=== PATIENT | male | born 1950 | race Caucasian/White ===

== ENCOUNTER 2017-02-11 09:07 | Inpatient (IN) | payer OTHER ==
--- NOTE | 2017-02-11 09:38 | HP ---
CIWA Score - CIWA Score Nausea/Vomitin-Mild Nausea/No Vomiting Muscle Tremors: 4-Moderate,w/Arms Extend Anxiety: 4-Mod. Anxious/Guarded Agitation: 1-Slight > Activity Paroxysmal Sweats: 1-Minimal Palms Moist Orientation: 1-Uncertain about Date Tacttile Disturbances: 1-Very Mild Itch/Numbness Auditory Disturbances: 1-Very Mild Visual Disturbances: 1-Very Mild Sensitivity Headache: 2-Mild CIWA-Ar Total Score: 17 Admission ROS S - HPI Chief Complaint: I need detox, I'm too shakey Allergies/Adverse Reactions: Allergies Allergy/AdvReac Type Severity Reaction Status Date / Time No Known Allergies Allergy Verified 02/11/17 09:53 History of Present Illness: 66 yo gentleman here for detox from alcohol and xanax dependence - seizure four years ago (drug related). States last times in detox was here in 2014 and he was sober for a while but relapsed a few months ago. Fell due to drinking two days ago and cut forehead - treated at [facility] ([place]). Exam Limitations: Clinical Condition - Ebola screening Have you traveled outside of the country in the last 21 days: No Have you had contact with anyone from an Ebola affected area: No Do you have a fever: No - Review of Systems Constitutional: Malaise, Changes in sleep, Weakness EENT: reports: Other (right eyebrow with laceration/stitches) Respiratory: reports: Cough Cardiac: reports: No Symptoms Reported GI: reports: Nausea, Poor Appetite : reports: Frequency Musculoskeletal: reports: Back Pain, Muscle Pain Integumentary: reports: Dryness Neuro: reports: Headache Endocrine: reports: No Symptoms Reported Hematology: reports: No Symptoms Reported Psychiatric: reports: Judgement Intact, Mood/Affect Appropiate, Anxious Other Systems: Reviewed and Negative Patient History - Patient Medical History Hx Anemia: No Hx Asthma: No Hx Chronic Obstructive Pulmonary Disease (COPD): Yes Hx Cancer: No Hx Cardiac Disorders: No Hx Congestive Heart Failure: No Hx Hypertension: Yes (on meds) Hx Hypercholesterolemia: No Hx Pacemaker: No HX Cerebrovascular Accident: No Hx Seizures: Yes (last one 2013) Hx Dementia: No Hx Diabetes: Yes Hx Gastrointestinal Disorders: No Hx Liver Disease: Yes Hx Genitourinary Disorders: No Hx Sexually Transmitted Disorders: No Hx Renal Disease (ESRD): No Hx Thyroid Disease: No Hx Human Immunodeficiency Virus (HIV): No Hx Hepatitis C: Yes (treated with harvoni ) Hx Depression: Yes Hx Suicide Attempt: No Hx Bipolar Disorder: No Hx Schizophrenia: No - Patient Surgical History Past Surgical History: No Hx Neurologic Surgery: No Hx Cataract Extraction: No Hx Cardiac Surgery: No Hx Lung Surgery: No Hx Breast Surgery: No Hx Breast Biopsy: No Hx Abdominal Surgery: No Hx Appendectomy: No Hx Cholecystectomy: No Hx Genitourinary Surgery: No Hx Section: No Hx Orthopedic Surgery: No Anesthesia Reaction: No - PPD History Previous Implant?: Yes Documented Results: Negative w/proof Date: 06/29/14 Results: negative 0 mm PPD to be Administered?: Yes - Reproductive History Patient is a Female of Child Bearing Age (11 -55 yrs old): No (male) - Smoking Cessation Smoking history: Current every day smoker Have you smoked in the past 12 months: Yes Aproximately how many cigarettes per day: 20 Hx Chewing Tobacco Use: No Initiated information on smoking cessation: Yes 'Breaking Loose' booklet given: 02/11/17 (give on floor) - Substance & Tx. History Hx Alcohol Use: Yes Hx Substance Use: Yes Substance Use Type: Alcohol, Tranquilizers Hx Substance Use Treatment: Yes (detox, rehab) - Substances Abused Alcohol Route: Oral Frequency: Daily Amount used: 1/2 quart vodka Age of first use: 22 Date of Last Use: 02/10/17 Alprazolam (Xanax) Route: Oral Frequency: Daily Amount used: three 4mg sticks Age of first use: 26 Date of Last Use: 02/09/17 Family Disease History - Family Disease History Family Disease History: Diabetes: Father (,), Heart Disease: Sister ( two - living), CA: Mother (, ), Other: Father, Mother, Sister, Son (two - living - healthy), Daughter (one -living - healthy) Admission Physical Exam BHS - Vital Signs Vital Signs: Vital Signs Period Temp Pulse Resp BP Sys/Boyer Pulse Ox Last 24 Hr 95.9 F 90 20 141/92 - Physical General Appearance: Yes: Nourished, Appropriately Dressed, Moderate Distress, Anxious HEENTM: Yes: Hearing grossly Normal, Normocephalic, Normal Voice, Pharynx Normal , Other (right eyebrow with laceration and four stitches) Respiratory: Yes: Normal Breath Sounds, No Respiratory Distress Neck: Yes: No masses,lesions,Nodules Breast: Yes: Breast Exam Deferred Cardiology: Yes: Regular Rhythm, Regular Rate Abdominal: Yes: Soft Genitourinary: Yes: Frequency Back: Yes: Normal Inspection Musculoskeletal: Yes: full range of Motion, Gait Steady Extremities: Yes: Normal Inspection, Normal Range of Motion, Non-Tender Neurological: Yes: Alert, Motor Strength 5/5, Normal Mood/Affect, Normal Response Integumentary: Yes: Normal Color, Dry, Warm Lymphatic: Yes: Within Normal Limits - Addiitonal Findings: BGM = 135 - Diagnostic (1) Alcohol dependence with uncomplicated withdrawal Current Visit: Yes Status: Chronic (2) Sedative, hypnotic or anxiolytic dependence with withdrawal, uncomplicated Current Visit: Yes Status: Chronic (3) Diabetes mellitus treated with oral medication Current Visit: Yes Status: Chronic (4) History of seizure Current Visit: Yes Status: Chronic (5) COPD (chronic obstructive pulmonary disease) Current Visit: Yes Status: Chronic Qualifiers: COPD type: emphysema Emphysema type: other Qualified Code(s): J43.8 - Other emphysema; J43.8 - Other emphysema; J43.8 - Other emphysema; J43.8 - Other emphysema (6) HTN (hypertension) Current Visit: Yes Status: Chronic Qualifiers: Hypertension type: essential hypertension Qualified Code(s): I10 - Essential (primary) hypertension; I10 - Essential (primary) hypertension; I10 - Essential (primary) hypertension (7) Nicotine dependence Current Visit: Yes Status: Chronic Qualifiers: Nicotine product type: cigarettes Substance use status: uncomplicated Qualified Code(s): F17.210 - Nicotine dependence, cigarettes, uncomplicated ; F17.210 - Nicotine dependence, cigarettes, uncomplicated Cleared for Admission BHS - Detox or Rehab S Level of Care: Medically Managed Detox Regimen/Protocol: Librium BHS Breath Alcohol Content Breath Alcohol Content: 0
[2017-02-11] MEDS ORDERED: MENTHOL/PHENOL 1 EACH UD MM PRN (09:51)
[2017-02-11] MEDS ORDERED: guaiFENesin/D-METHORPHAN HB 10 ML UNIT-DOSE CUPS PO PRN (09:51)
[2017-02-11] MEDS ORDERED: P-EPHED 60MG/TRIPROLIDI 2.5MG TABLET PO PRN (09:51)
[2017-02-11] MEDS ORDERED: MAGNESIUM HYDROX 2400MG/30ML ORAL SUSPENSION 30 ML CUP PO PRN (09:51)
[2017-02-11] MEDS ORDERED: ACETAMINOPHEN 325 MG TABLET (FP) PO PRN (09:51)
[2017-02-11] MEDS ORDERED: MAG HYDROX/AL HYDROX/SIMETH 30 ML UNIT-DOSE CUP PO PRN (09:51)
[2017-02-11] MEDS ORDERED: MAGNESIUM CITRATE 300 ML BOTTLE PO PRN (09:51)
[2017-02-11] MEDS ORDERED: IBUPROFEN 400 MG TABLET (FP) PO PRN (09:51)
[2017-02-11] MEDS ORDERED: LOPERAMIDE HCL 2 MG CAPSULE PO PRN (09:51)
[2017-02-11] MEDS ORDERED: hydrOXYzine PAMOATE 50 MG CAPSULE (FP) PO PRN (09:51)
[2017-02-11] MEDS ORDERED: chlordiazePOXIDE HCL 25 MG CAPSULE PO PRN (09:51)
[2017-02-11 09:52] VITALS: BMI 28.0
[2017-02-11] MEDS ORDERED: chlordiazePOXIDE HCL 25 MG CAPSULE PO ONE (13:00)
[2017-02-11] MEDS: LOSARTAN POTASSIUM 25 MG TABLET PO SCH (13:46)
[2017-02-11] MEDS: NICOTINE 21 MG/24 HOURS TOPICAL PATCH TD SCH (13:48)
[2017-02-11] MEDS: PRENATAL VITAMINS W/ FOLIC ACID TABLET (FP) PO SCH (13:52)
[2017-02-11 15:11] LABS: URINE APPEARANCE SLCLOUDY; URINE BLOOD NEGATIVE (NEGATIVE); URINE COLOR AMBER; URINE GLUCOSE (UA) NEGATIVE (NEGATIVE); URINE KETONE 1+ (NEGATIVE); URINE NITRITE NEGATIVE (NEGATIVE); URINE UROBILINOGEN 4.0 E.U/dl mg/dL (0.2-1.0)
[2017-02-11 15:17] LABS: URINE PROTEIN 2+ (NEGATIVE)
[2017-02-11 15:19] LABS: URINE HYALINE CAST 18 /lpf; URINE MUCUS MANY; URINE RBC 2 /hpf (0-3); URINE WBC 7 /hpf (3-5)
[2017-02-11] MEDS: metFORMIN HCL 500 MG TABLET (FP) PO SCH (17:26)
[2017-02-11] MEDS: chlordiazePOXIDE HCL 25 MG CAPSULE PO SCH ×2 (17:26→22:49)
[2017-02-11 17:46] LABS: URINE LEUK ESTERASE Negative (NEGATIVE)
[2017-02-11] MEDS ORDERED: diphenhydrAMINE HCL 50 MG CAPSULE PO PRN (22:00)
[2017-02-11] MEDS: THIAMINE HCL 100 MG TABLET (FP) PO SCH (22:49)
[2017-02-12] MEDS: chlordiazePOXIDE HCL 25 MG CAPSULE PO SCH ×4 (06:22→22:25)
[2017-02-12] MEDS: metFORMIN HCL 500 MG TABLET (FP) PO SCH ×2 (06:26→17:28)
[2017-02-12 09:54] LABS: MCH 28.5 pg (25.7-33.7); MCHC 33.8 g/dl (32.0-35.9); MEAN CELL VOLUME 84.4 fl (80-96); MEAN PLT VOLUME 9.1 fl (7.5-11.1); PLATELET COUNT 307 K/MM3 (134-434); RDW 14.7 % (11.9-15.9); WHITE BLOOD COUNT 11.6 K/mm3 (4.0-10.0)
[2017-02-12 10:27] LABS: ALBUMIN 4.2 g/dl (3.4-5.0); ALK PHOS 85 U/L (45-117); ANION GAP 10 (8-16); BILIRUBIN,TOTAL 1.2 mg/dL (0.2-1.0); CALCIUM 9.1 mg/dL (8.5-10.1); CO2 26 mmol/L (21-32); CREATININE 0.8 mg/dL (0.7-1.3); GLUCOSE,RANDOM 132 mg/dL (74-106); SGOT/AST 13 U/L (15-37); SGPT/ALT 17 U/L (12-78); TOT PROT 7.9 g/dl (6.4-8.2)
[2017-02-12] MEDS: NICOTINE 21 MG/24 HOURS TOPICAL PATCH TD SCH (11:01)
[2017-02-12] MEDS: LOSARTAN POTASSIUM 25 MG TABLET PO SCH (11:01)
[2017-02-12] MEDS: PRENATAL VITAMINS W/ FOLIC ACID TABLET (FP) PO SCH (11:01)
--- NOTE | 2017-02-12 11:04 | EKG ---
Test Reason : Blood Pressure : / mmHG Vent. Rate : 088 BPM Atrial Rate : 088 BPM P-R Int : 156 ms QRS Dur : 094 ms QT Int : 386 ms P-R-T Axes : 069 -49 065 degrees QTc Int : 467 ms NORMAL SINUS RHYTHM LEFT ANTERIOR FASCICULAR BLOCK POSSIBLE INFERIOR INFARCT , AGE UNDETERMINED ABNORMAL ECG WHEN COMPARED WITH ECG OF 08-OCT-2012 08:52, QRS AXIS SHIFTED LEFT CLINICAL CORRELATION IS RECOMMENDED Confirmed by BRISEYDA COPELAND MD ([id number]) on 02/12/2017 11:03:31 AM Referred By: Confirmed By:BRISEYDA COPELAND MD
--- NOTE | 2017-02-12 11:12 | CONSULT ---
[facility] Psychiatric Consult - Data Date of interview: 02/12/17 Admission source: [facility]([place]) Identifying data: Mr Martinez is a 66 years old male, father of 3 children, unemployed on SSD, domiciled living with his Substance Abuse History: Reports history of alcohol and xanax use. Refer to addiction counselor's note for more information Medical History: Significant for history of COPD, HTN, DM,history of treatment for hepatitis C Smokes cigarettes 1ppd. Psychiatric History: Reports being diagnosed with OCD at age 7. Denies history of previous psychiatric hospitalization or suicidal attempt. Reports receiving psychiatric outpatient services at [facility](formerly [facility]) and he is prescribed Luvox 300 mg po daily, Seroquel 400 mg po HS and Trazadone 100 mg HS. According to pharmacy claims, he filled scripts for Trazadone 100 mg po HS on 12/07/16 and Luvox 300 mg po daily & Seroquel 400 mg po HS on 01/27/17. At present, reports feeling anxious and experiencing difficulty to sleep Physical/Sexual Abuse/Trauma History: Denies history of verbal, physical or sexual abuse as DV relationship. No service Additional Comment: Reports history of couple previous misdemeanor arrests for possesion of narcotic. No probation currently Mental Status Exam - Mental Status Exam Alert and Oriented to: Time, Place, Person Cognitive Function: Fair Patient Appearance: Well Groomed Mood: Anxious Affect: Appropriate Patient Behavior: Cooperative Speech Pattern: Clear Voice Loudness: Normal Thought Process: Intact, Goal Oriented Thought Disorder: Not Present Hallucinations: Denies Suicidal Ideation: Denies Homicidal Ideation: Denies Insight/Judgement: Poor Sleep: Poorly Appetite: Fair Muscle strength/Tone: Normal Gait/Station: Normal Psychiatric Findings - Problem List ([place] 1, 2,3) (1) OCD (obsessive compulsive disorder) Current Visit: No Status: Chronic (2) Substance-induced anxiety disorder Current Visit: Yes Status: Acute (3) Substance-induced sleep disorder Current Visit: Yes Status: Acute (4) Alcohol dependence with uncomplicated withdrawal Current Visit: Yes Status: Chronic (5) Sedative, hypnotic or anxiolytic dependence with withdrawal, uncomplicated Current Visit: Yes Status: Chronic (6) Nicotine dependence Current Visit: Yes Status: Chronic Qualifiers: Nicotine product type: cigarettes Substance use status: uncomplicated Qualified Code(s): F17.210 - Nicotine dependence, cigarettes, uncomplicated ; F17.210 - Nicotine dependence, cigarettes, uncomplicated (7) COPD (chronic obstructive pulmonary disease) Current Visit: Yes Status: Chronic Qualifiers: COPD type: emphysema Emphysema type: other Qualified Code(s): J43.8 - Other emphysema; J43.8 - Other emphysema; J43.8 - Other emphysema; J43.8 - Other emphysema (8) Diabetes mellitus treated with oral medication Current Visit: Yes Status: Chronic (9) HTN (hypertension) Current Visit: Yes Status: Chronic Qualifiers: Hypertension type: essential hypertension Qualified Code(s): I10 - Essential (primary) hypertension; I10 - Essential (primary) hypertension; I10 - Essential (primary) hypertension (10) History of seizure Current Visit: Yes Status: Chronic (11) Opioid dependence on agonist therapy Current Visit: Yes Status: Acute - Initial Treatment Plan Initial Treatment Plan: 1) Continue Luvox 300 mg po daily, Seroquel 400 mg po HS. 2) Continue inpatient detoxification
--- NOTE | 2017-02-12 14:12 | PN ---
[facility] CIWA - CIWA Score Nausea/Vomitin-No Nausea/No Vomiting Muscle Tremors: 4-Moderate,w/Arms Extend Anxiety: 4-Mod. Anxious/Guarded Agitation: 3 Paroxysmal Sweats: 3 Orientation: 0-Oriented Tacttile Disturbances: 1-Very Mild Itch/Numbness Auditory Disturbances: 0-None Visual Disturbances: 0-None Headache: 0-None Present CIWA-Ar Total Score: 15 BHS Progress Note (SOAP) Subjective: Anxiety,tremors,sweating,interrupted sleep,restless Objective: 02/12/17 14:10 Vital Signs - 8 hr 02/12/17 10:00 Temperature 98.3 F Pulse Rate 82 Respiratory 18 Rate Blood Pressure 123/82 Laboratory Tests 02/11/17 02/11/17 02/12/17 09:59 13:45 05:55 WBC 11.6 H D RBC 5.24 D Hgb 15.0 D Hct 44.3 D MCV 84.4 MCH 28.5 MCHC 33.8 RDW 14.7 Plt Count 307 MPV 9.1 D Sodium Potassium Chloride Carbon Dioxide Anion Gap BUN Creatinine Creat Clearance w eGFR POC Glucometer 136 Random Glucose Calcium Total Bilirubin AST ALT Alkaline Phosphatase Total Protein Albumin Urine Color Tara Urine Appearance Slcloudy Urine pH 5.0 D Ur Specific [place] >= 1.030 H Urine Protein 2+ H Urine Glucose (UA) Negative Urine Ketones 1+ H Urine Blood Negative Urine Nitrite Negative Urine Bilirubin 2.0 Urine Urobilinogen 4.0 e.u/dl Ur Leukocyte Esterase Negative Urine RBC 2 Urine WBC 7 Hyaline Casts 18 Urine Mucus Many RPR Titer 02/12/17 02/12/17 02/12/17 05:55 05:55 06:25 WBC RBC Hgb Hct MCV MCH MCHC RDW Plt Count MPV Sodium 138 Potassium 3.6 Chloride 102 Carbon Dioxide 26 Anion Gap 10 BUN 22 H D Creatinine 0.8 Creat Clearance w eGFR > 60 POC Glucometer 129 Random Glucose 132 H Calcium 9.1 Total Bilirubin 1.2 H D AST 13 L D ALT 17 D Alkaline Phosphatase 85 Total Protein 7.9 Albumin 4.2 Urine Color Urine Appearance Urine pH Ur Specific [place] Urine Protein Urine Glucose (UA) Urine Ketones Urine Blood Urine Nitrite Urine Bilirubin Urine Urobilinogen Ur Leukocyte Esterase Urine RBC Urine WBC Hyaline Casts Urine Mucus RPR Titer Nonreactive labs noted,increase po fluid then repeat Assessment: 02/12/17 14:11 Withdrawal sx. Plan: Continue detox
[2017-02-12] MEDS ORDERED: ALBUTEROL SO4 18 GM HFA INHALER IH ONE (17:01)
[2017-02-12] MEDS: ALBUTEROL SO4 18 GM HFA INHALER IH PRN (17:02)
[2017-02-12] MEDS: QUEtiapine FUMARATE 200 MG TABLET PO SCH (22:24)
[2017-02-12] MEDS: THIAMINE HCL 100 MG TABLET (FP) PO SCH (22:24)
[2017-02-13] MEDS: chlordiazePOXIDE HCL 25 MG CAPSULE PO SCH ×2 (05:58→10:21)
[2017-02-13] MEDS: metFORMIN HCL 500 MG TABLET (FP) PO SCH ×2 (07:14→17:52)
[2017-02-13] MEDS: LOSARTAN POTASSIUM 25 MG TABLET PO SCH (10:21)
[2017-02-13] MEDS: PRENATAL VITAMINS W/ FOLIC ACID TABLET (FP) PO SCH (10:21)
[2017-02-13] MEDS: NICOTINE 21 MG/24 HOURS TOPICAL PATCH TD SCH (10:22)
--- NOTE | 2017-02-13 12:39 | PN ---
S CIWA - CIWA Score Nausea/Vomitin Muscle Tremors: 3 Anxiety: 3 Agitation: 2 Paroxysmal Sweats: 1-Minimal Palms Moist Orientation: 0-Oriented Tacttile Disturbances: 1-Very Mild Itch/Numbness Auditory Disturbances: 1-Very Mild Visual Disturbances: 0-None Headache: 2-Mild CIWA-Ar Total Score: 16 BHS Progress Note (SOAP) Subjective: ALERT,IRRITABLE,ANXIOUS,INTERRUPTED SLEEP,TREMOR Objective: 02/13/17 12:39 Vital Signs Temperature 97.5 F L 02/13/17 10:11 Pulse Rate 78 02/13/17 10:11 Respiratory Rate 18 02/13/17 10:11 Blood Pressure 97/65 02/13/17 10:11 O2 Sat by Pulse Oximetry (%) NO CHEST PAIN,NO SOB,NO DIZZINESS Laboratory Last Values WBC 11.6 K/mm3 (4.0-10.0) H D 02/12/17 05:55 RBC 5.24 M/mm3 (4.00-5.60) D 02/12/17 05:55 Hgb 15.0 GM/dL (11.7-16.9) D 02/12/17 05:55 Hct 44.3 % (35.4-49) D 02/12/17 05:55 MCV 84.4 fl (80-96) 02/12/17 05:55 MCH 28.5 pg (25.7-33.7) 02/12/17 05:55 MCHC 33.8 g/dl (32.0-35.9) 02/12/17 05:55 RDW 14.7 % (11.9-15.9) 02/12/17 05:55 Plt Count 307 K/MM3 (134-434) 02/12/17 05:55 MPV 9.1 fl (7.5-11.1) D 02/12/17 05:55 Sodium 138 mmol/L (136-145) 02/12/17 05:55 Potassium 3.6 mmol/L (3.5-5.1) 02/12/17 05:55 Chloride 102 mmol/L (98-107) 02/12/17 05:55 Carbon Dioxide 26 mmol/L (21-32) 02/12/17 05:55 Anion Gap 10 (8-16) 02/12/17 05:55 BUN 22 mg/dL (7-18) H D 02/12/17 05:55 Creatinine 0.8 mg/dL (0.7-1.3) 02/12/17 05:55 Creat Clearance w eGFR > 60 (>60) 02/12/17 05:55 POC Glucometer 137 UNITS (()) 02/13/17 05:58 Random Glucose 132 mg/dL (74-106) H 02/12/17 05:55 Calcium 9.1 mg/dL (8.5-10.1) 02/12/17 05:55 Total Bilirubin 1.2 mg/dL (0.2-1.0) H D 02/12/17 05:55 AST 13 U/L (15-37) L D 02/12/17 05:55 ALT 17 U/L (12-78) D 02/12/17 05:55 Alkaline Phosphatase 85 U/L (45-117) 02/12/17 05:55 Total Protein 7.9 g/dl (6.4-8.2) 02/12/17 05:55 Albumin 4.2 g/dl (3.4-5.0) 02/12/17 05:55 Urine Color Tara 02/11/17 13:45 Urine Appearance Slcloudy 02/11/17 13:45 Urine pH 5.0 (5.0-8.0) D 02/11/17 13:45 Ur Specific [place] >= 1.030 (1.005-1.025) H 02/11/17 13:45 Urine Protein 2+ (NEGATIVE) H 02/11/17 13:45 Urine Glucose (UA) Negative (NEGATIVE) 02/11/17 13:45 Urine Ketones 1+ (NEGATIVE) H 02/11/17 13:45 Urine Blood Negative (NEGATIVE) 02/11/17 13:45 Urine Nitrite Negative (NEGATIVE) 02/11/17 13:45 Urine Bilirubin 2.0 (NEGATIVE) 02/11/17 13:45 Urine Urobilinogen 4.0 e.u/dl mg/dL (0.2-1.0) 02/11/17 13:45 Ur Leukocyte Esterase Negative (NEGATIVE) 02/11/17 13:45 Urine RBC 2 /hpf (0-3) 02/11/17 13:45 Urine WBC 7 /hpf (3-5) 02/11/17 13:45 Hyaline Casts 18 /lpf 02/11/17 13:45 Urine Mucus Many 02/11/17 13:45 RPR Titer Nonreactive (NONREACTIVE) 02/12/17 05:55 Assessment: 02/13/17 12:41 WITHDRAWAL SYMPTOM Plan: ENCOURAGE ORAL FLUID,REPEAT CBC,CMP,UA
[2017-02-13] MEDS: ALBUTEROL SO4 18 GM HFA INHALER IH PRN ×2 (15:08→22:06)
[2017-02-13] MEDS: chlordiazePOXIDE 5 MG CAPSULE PO SCH ×2 (17:52→22:06)
[2017-02-13] MEDS: THIAMINE HCL 100 MG TABLET (FP) PO SCH (22:06)
[2017-02-13] MEDS: QUEtiapine FUMARATE 200 MG TABLET PO SCH (22:06)
[2017-02-13 23:03] LABS: URINE APPEARANCE CLEAR; URINE BILIRUBIN NEGATIVE (NEGATIVE); URINE BLOOD NEGATIVE (NEGATIVE); URINE COLOR YELLOW; URINE GLUCOSE (UA) NEGATIVE (NEGATIVE); URINE KETONE NEGATIVE (NEGATIVE); URINE NITRITE NEGATIVE (NEGATIVE); URINE PROTEIN NEGATIVE (NEGATIVE); URINE UROBILINOGEN 4.0 E.U/dl mg/dL (0.2-1.0)
[2017-02-14] MEDS: chlordiazePOXIDE 5 MG CAPSULE PO SCH ×2 (05:29→11:00)
[2017-02-14] MEDS: metFORMIN HCL 500 MG TABLET (FP) PO SCH ×2 (08:31→17:51)
[2017-02-14 10:00] LABS: MCH 28.8 pg (25.7-33.7); MCHC 33.7 g/dl (32.0-35.9); MEAN CELL VOLUME 85.3 fl (80-96); MEAN PLT VOLUME 8.8 fl (7.5-11.1); PLATELET COUNT 222 K/MM3 (134-434); RDW 14.9 % (11.9-15.9); WHITE BLOOD COUNT 8.4 K/mm3 (4.0-10.0)
[2017-02-14 10:44] LABS: ALBUMIN 3.3 g/dl (3.4-5.0); ALK PHOS 64 U/L (45-117); ANION GAP 9 (8-16); BILIRUBIN,TOTAL 0.5 mg/dL (0.2-1.0); CALCIUM 8.5 mg/dL (8.5-10.1); CO2 30 mmol/L (21-32); CREATININE 0.7 mg/dL (0.7-1.3); GLUCOSE,RANDOM 106 mg/dL (74-106); SGOT/AST 7 U/L (15-37); SGPT/ALT 14 U/L (12-78); TOT PROT 6.4 g/dl (6.4-8.2)
[2017-02-14] MEDS: PRENATAL VITAMINS W/ FOLIC ACID TABLET (FP) PO SCH (11:00)
[2017-02-14] MEDS: LOSARTAN POTASSIUM 25 MG TABLET PO SCH (11:01)
[2017-02-14] MEDS: NICOTINE 21 MG/24 HOURS TOPICAL PATCH TD SCH (11:01)
[2017-02-14] MEDS: ALBUTEROL SO4 18 GM HFA INHALER IH PRN (11:02)
[2017-02-14 11:24] LABS: URINE LEUK ESTERASE Negative (NEGATIVE)
--- NOTE | 2017-02-14 11:24 | PN ---
BHS Progress Note (SOAP) Subjective: alert,irritable,anxious,interrupted sleep,abrasion of left elbow Objective: 02/14/17 11:20 Vital Signs Temperature 100 F H 02/14/17 10:21 Pulse Rate 83 02/14/17 10:21 Respiratory Rate 19 02/14/17 10:21 Blood Pressure 148/91 02/14/17 10:21 O2 Sat by Pulse Oximetry (%) Laboratory Last Values WBC 8.4 K/mm3 (4.0-10.0) 02/14/17 07:00 RBC 4.67 M/mm3 (4.00-5.60) 02/14/17 07:00 Hgb 13.4 GM/dL (11.7-16.9) D 02/14/17 07:00 Hct 39.9 % (35.4-49) 02/14/17 07:00 MCV 85.3 fl (80-96) 02/14/17 07:00 MCH 28.8 pg (25.7-33.7) 02/14/17 07:00 MCHC 33.7 g/dl (32.0-35.9) 02/14/17 07:00 RDW 14.9 % (11.9-15.9) 02/14/17 07:00 Plt Count 222 K/MM3 (134-434) D 02/14/17 07:00 MPV 8.8 fl (7.5-11.1) 02/14/17 07:00 Sodium 138 mmol/L (136-145) 02/12/17 05:55 Potassium 3.6 mmol/L (3.5-5.1) 02/12/17 05:55 Chloride 102 mmol/L (98-107) 02/12/17 05:55 Carbon Dioxide 26 mmol/L (21-32) 02/12/17 05:55 Anion Gap 10 (8-16) 02/12/17 05:55 BUN 22 mg/dL (7-18) H D 02/12/17 05:55 Creatinine 0.8 mg/dL (0.7-1.3) 02/12/17 05:55 Creat Clearance w eGFR > 60 (>60) 02/12/17 05:55 POC Glucometer 123 UNITS (()) 02/14/17 07:05 Random Glucose 132 mg/dL (74-106) H 02/12/17 05:55 Calcium 9.1 mg/dL (8.5-10.1) 02/12/17 05:55 Total Bilirubin 1.2 mg/dL (0.2-1.0) H D 02/12/17 05:55 AST 13 U/L (15-37) L D 02/12/17 05:55 ALT 17 U/L (12-78) D 02/12/17 05:55 Alkaline Phosphatase 85 U/L (45-117) 02/12/17 05:55 Total Protein 7.9 g/dl (6.4-8.2) 02/12/17 05:55 Albumin 4.2 g/dl (3.4-5.0) 02/12/17 05:55 Urine Color Yellow 02/13/17 Unknown Urine Appearance Clear 02/13/17 Unknown Urine pH 7.0 (5.0-8.0) D 02/13/17 Unknown Ur Specific [place] >= 1.030 (1.005-1.025) H 02/11/17 13:45 Urine Protein Negative (NEGATIVE) 02/13/17 Unknown Urine Glucose (UA) Negative (NEGATIVE) 02/13/17 Unknown Urine Ketones Negative (NEGATIVE) 02/13/17 Unknown Urine Blood Negative (NEGATIVE) 02/13/17 Unknown Urine Nitrite Negative (NEGATIVE) 02/13/17 Unknown Urine Bilirubin Negative (NEGATIVE) 02/13/17 Unknown Urine Urobilinogen 4.0 e.u/dl mg/dL (0.2-1.0) 02/13/17 Unknown Ur Leukocyte Esterase Negative (NEGATIVE) 02/11/17 13:45 Urine RBC 2 /hpf (0-3) 02/11/17 13:45 Urine WBC 7 /hpf (3-5) 02/11/17 13:45 Hyaline Casts 18 /lpf 02/11/17 13:45 Urine Mucus Many 02/11/17 13:45 RPR Titer Nonreactive (NONREACTIVE) 02/12/17 05:55 Assessment: 02/14/17 11:22 withdrawal symptom repeat cbc wbc 8,400 02/14/17 11:23 02/14/17 11:24 cmp pending Plan: withdrawal symptom,continue detox,bacitracin ointment bid abrasion left elbow, discharge in am
[2017-02-14] MEDS: chlordiazePOXIDE HCL 10 MG CAPSULE PO SCH ×2 (17:36→23:27)
[2017-02-14] MEDS: QUEtiapine FUMARATE 200 MG TABLET PO SCH (22:47)
[2017-02-14] MEDS: THIAMINE HCL 100 MG TABLET (FP) PO SCH (22:48)
[2017-02-14] MEDS: BACITRACIN 0.9 GM PACKET TP SCH (22:48)
[2017-02-15] MEDS: chlordiazePOXIDE HCL 10 MG CAPSULE PO SCH ×2 (05:33→10:26)
[2017-02-15] MEDS: metFORMIN HCL 500 MG TABLET (FP) PO SCH ×2 (07:42→17:00)
--- NOTE | 2017-02-15 09:43 | PN ---
S Progress Note (SOAP) Subjective: alert,no complaint Objective: 02/15/17 09:41 Vital Signs Temperature 97.3 F L 02/15/17 06:36 Pulse Rate 83 02/15/17 06:36 Respiratory Rate 18 02/15/17 06:36 Blood Pressure 117/66 02/15/17 06:36 O2 Sat by Pulse Oximetry (%) detox completed,no withdrawal symptom Assessment: 02/15/17 09:42 sutures removed from right eyebrow and right mandibular area wound healed well Plan: discharge to[place],follow up with after care program as arrangement
--- NOTE | 2017-02-15 09:48 | DS ---
[facility] Detox Discharge Summary Admission Date: 02/11/17 Discharge Date: 02/15/17 - History Present History: Alcohol Dependence, Sedative Dependence Additional Comments: follow up with after care program as arrangement Pertinent Past History: type 23 dm copd hypertension nicotine dependenc e history of seizures laceration of right eyebrow,chin,abrasion left elbow - Physical Exam Results Vital Signs: Vital Signs Temperature 97.3 F L 02/15/17 06:36 Pulse Rate 83 02/15/17 06:36 Respiratory Rate 18 02/15/17 06:36 Blood Pressure 117/66 02/15/17 06:36 O2 Sat by Pulse Oximetry (%) Pertinent Admission Physical Exam Findings: withdrawal symptom - Treatment Hospital Course: Detox Protocol Followed, Detoxed Safely, Responded well, Discharged Condition Good, Rehab Referral Accepted Patient has Accepted a Rehab Referral to: [facility] - Medication Discharge Medications: Ambulatory Orders Albuterol Sulfate Inhaler - [Ventolin Hfa Inhaler -] 2 inh PO Q4H PRN 02/11/17 Losartan Potassium [Cozaar -] 25 mg PO DAILY 02/11/17 Metformin HCl [Glucophage -] 500 mg PO BID 02/11/17 Quetiapine Fumarate [Seroquel -] 300 mg PO HS 02/11/17 Fluvoxamine Maleate [Luvox -] 300 mg PO DAILY #90 tablet 02/12/17 Quetiapine Fumarate [Seroquel -] 400 mg PO HS #30 tablet 02/12/17 - Diagnosis (1) Alcohol dependence with uncomplicated withdrawal Current Visit: Yes Status: Chronic (2) COPD (chronic obstructive pulmonary disease) Current Visit: Yes Status: Chronic Qualifiers: COPD type: emphysema Emphysema type: other Qualified Code(s): J43.8 - Other emphysema; J43.8 - Other emphysema; J43.8 - Other emphysema; J43.8 - Other emphysema (3) Diabetes mellitus treated with oral medication Current Visit: Yes Status: Chronic (4) HTN (hypertension) Current Visit: Yes Status: Chronic Qualifiers: Hypertension type: essential hypertension Qualified Code(s): I10 - Essential (primary) hypertension; I10 - Essential (primary) hypertension; I10 - Essential (primary) hypertension (5) History of seizure Current Visit: Yes Status: Chronic (6) Nicotine dependence Current Visit: Yes Status: Chronic Qualifiers: Nicotine product type: cigarettes Substance use status: uncomplicated Qualified Code(s): F17.210 - Nicotine dependence, cigarettes, uncomplicated ; F17.210 - Nicotine dependence, cigarettes, uncomplicated (7) Sedative, hypnotic or anxiolytic dependence with withdrawal, uncomplicated Current Visit: Yes Status: Chronic (8) Drug-induced mood disorder Current Visit: No Status: Chronic (9) Laceration of right eyebrow Current Visit: Yes Status: Acute (10) Laceration of chin Current Visit: Yes Status: Acute - AMA Did Patient Leave Against Medical Advice: No
[2017-02-15] MEDS: NICOTINE 21 MG/24 HOURS TOPICAL PATCH TD SCH (10:00)
[2017-02-15] MEDS: PRENATAL VITAMINS W/ FOLIC ACID TABLET (FP) PO SCH (10:24)
[2017-02-15] MEDS: LOSARTAN POTASSIUM 25 MG TABLET PO SCH (10:24)
[2017-02-15] MEDS: BACITRACIN 0.9 GM PACKET TP SCH ×2 (10:25→21:54)
--- NOTE | 2017-02-15 10:25 | PN ---
S Progress Note Note: addendum patient will be transferred to rehab for continuation of care
[2017-02-15] MEDS: THIAMINE HCL 100 MG TABLET (FP) PO SCH (21:53)
[2017-02-15] MEDS: QUEtiapine FUMARATE 200 MG TABLET PO SCH (21:53)
[2017-02-16] MEDS: metFORMIN HCL 500 MG TABLET (FP) PO SCH ×2 (06:32→17:23)
[2017-02-16] MEDS: NICOTINE 21 MG/24 HOURS TOPICAL PATCH TD SCH (10:26)
[2017-02-16] MEDS: BACITRACIN 0.9 GM PACKET TP SCH ×2 (10:26→21:39)
[2017-02-16] MEDS: LOSARTAN POTASSIUM 25 MG TABLET PO SCH (10:26)
[2017-02-16] MEDS: PRENATAL VITAMINS W/ FOLIC ACID TABLET (FP) PO SCH (10:26)
--- NOTE | 2017-02-16 11:10 | PN ---
S Progress Note Note: labs and home meds reviewed will restart neurontin 300mg tid
[2017-02-16] MEDS ORDERED: FLU VACCINE QUAD 60 MCG/0.5 ML (MDV 17-18) IM ONE (12:00)
--- NOTE | 2017-02-16 12:09 | HP ---
Psychiatrist Admission - Data Date of interview: 02/16/17 Admission source: 6N Identifying data: This is the second inpatient rehabilitation admission for this 66 year old male father of 3, unemployed and on disability benefits, residing with his in the [place] apartment. Medical History: HTN, diabetes mellitus, diabetic neuropathy, COPD. Reports having had a single grand mal seizure years ago. Hepatitis C. Vertebral fracture , work related, in his 20's. Psychiatric History: Reports first psychiatric treatment was about 30 years ago "I have OCD, mild depression and anxiety", and was on different medications". Reports no history of psychiatric hospitalization however had been admitted to a NADIA unit at [facility] in [place] around 30 years ago for 28 days of rehab treatment. Reports receiving psychiatric outpatient services at [facility](formerly [facility]) and he is prescribed Luvox 300 mg po daily, Seroquel 400 mg po HS and Trazodone 100 mg HS. Physical/Sexual Abuse/Trauma History: Reports no history of physical or sexual abuse, and no history of service. 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 Vital Signs: Vital Signs - 24 hr 02/15/17 02/16/17 02/16/17 13:06 00:30 03:30 Temperature 97.6 F Pulse Rate 85 Respiratory 18 18 18 Rate Blood Pressure 143/99 02/16/17 07:22 Temperature 97.8 F Pulse Rate 77 Respiratory 18 Rate Blood Pressure 142/99 Allergies/Adverse Reactions: Allergies Allergy/AdvReac Type Severity Reaction Status Date / Time No Known Allergies Allergy Verified 02/15/17 13:08 Date of last physical exam: 02/11/17 Concur with the findings of this exam: Yes - Substance Abuse/Tx History Hx Alcohol Use: Yes (daily 1 pint of vodka) Hx Substance Use: Yes Substance Use Type: Heroin (Iv use 1 -2 bags daily), Tranquilizers (Xanax 2 mg daily) Hx Substance Use Treatment: Yes (3w in 2012, [facility]) Mental Status Exam - Mental Status Exam Alert and Oriented to: Time, Place, Person Cognitive Function: Good Patient Appearance: Well Groomed Mood: Sad, Anxious Affect: Appropriate, Mood Congruent Patient Behavior: Appropriate, Cooperative Speech Pattern: Clear, Appropriate Voice Loudness: Normal Thought Process: Goal Oriented Thought Disorder: Not Present Hallucinations: Denies Suicidal Ideation: Denies Homicidal Ideation: Denies Insight/Judgement: Fair Sleep: Fair Appetite: Fair Muscle strength/Tone: Normal Gait/Station: Normal Psychiatric Findings - Problem List ([place] 1, 2,3) (1) COPD (chronic obstructive pulmonary disease) Current Visit: Yes Status: Chronic Qualifiers: COPD type: emphysema Emphysema type: other Qualified Code(s): J43.8 - Other emphysema; J43.8 - Other emphysema; J43.8 - Other emphysema; J43.8 - Other emphysema (2) Diabetes mellitus treated with oral medication Current Visit: Yes Status: Chronic (3) HTN (hypertension) Current Visit: Yes Status: Chronic Qualifiers: Hypertension type: essential hypertension Qualified Code(s): I10 - Essential (primary) hypertension; I10 - Essential (primary) hypertension; I10 - Essential (primary) hypertension (4) History of seizure Current Visit: Yes Status: Chronic (5) Nicotine dependence Current Visit: Yes Status: Chronic Qualifiers: Nicotine product type: cigarettes Substance use status: uncomplicated Qualified Code(s): F17.210 - Nicotine dependence, cigarettes, uncomplicated ; F17.210 - Nicotine dependence, cigarettes, uncomplicated (6) OCD (obsessive compulsive disorder) Current Visit: No Status: Chronic (7) Alcohol dependence Current Visit: Yes Status: Acute (8) SHASHANK (generalized anxiety disorder) Current Visit: Yes Status: Acute (9) Mood disorder Current Visit: Yes Status: Acute - Initial Treatment Plan Initial Treatment Plan: will continue his current medications, monitor progress as needed.
[2017-02-16] MEDS: GABAPENTIN 300 MG CAPSULE (FP) PO SCH ×2 (13:53→21:39)
[2017-02-16] MEDS: THIAMINE HCL 100 MG TABLET (FP) PO SCH (21:39)
[2017-02-16] MEDS: QUEtiapine FUMARATE 200 MG TABLET PO SCH (21:40)
[2017-02-17] MEDS: metFORMIN HCL 500 MG TABLET (FP) PO SCH ×2 (06:33→17:13)
[2017-02-17] MEDS: GABAPENTIN 300 MG CAPSULE (FP) PO SCH ×3 (06:34→21:00)
[2017-02-17] MEDS: NICOTINE 21 MG/24 HOURS TOPICAL PATCH TD SCH (10:16)
[2017-02-17] MEDS: BACITRACIN 0.9 GM PACKET TP SCH ×2 (10:16→21:00)
[2017-02-17] MEDS: PRENATAL VITAMINS W/ FOLIC ACID TABLET (FP) PO SCH (10:16)
[2017-02-17] MEDS: LOSARTAN POTASSIUM 25 MG TABLET PO SCH (10:16)
[2017-02-17] MEDS: QUEtiapine FUMARATE 200 MG TABLET PO SCH (21:00)
[2017-02-17] MEDS: THIAMINE HCL 100 MG TABLET (FP) PO SCH (21:00)
[2017-02-18] MEDS: metFORMIN HCL 500 MG TABLET (FP) PO SCH ×2 (06:32→17:05)
[2017-02-18] MEDS: GABAPENTIN 300 MG CAPSULE (FP) PO SCH ×3 (06:32→22:15)
[2017-02-18] MEDS: PRENATAL VITAMINS W/ FOLIC ACID TABLET (FP) PO SCH (10:43)
[2017-02-18] MEDS: BACITRACIN 0.9 GM PACKET TP SCH ×2 (10:43→22:15)
[2017-02-18] MEDS: LOSARTAN POTASSIUM 25 MG TABLET PO SCH (10:43)
[2017-02-18] MEDS: NICOTINE 21 MG/24 HOURS TOPICAL PATCH TD SCH (10:43)
[2017-02-18] MEDS: QUEtiapine FUMARATE 200 MG TABLET PO SCH (22:15)
[2017-02-18] MEDS: THIAMINE HCL 100 MG TABLET (FP) PO SCH (22:15)
[2017-02-19] MEDS: GABAPENTIN 300 MG CAPSULE (FP) PO SCH ×3 (06:32→21:51)
[2017-02-19] MEDS: metFORMIN HCL 500 MG TABLET (FP) PO SCH ×2 (06:32→16:56)
[2017-02-19] MEDS: BACITRACIN 0.9 GM PACKET TP SCH ×2 (10:30→21:51)
[2017-02-19] MEDS: LOSARTAN POTASSIUM 25 MG TABLET PO SCH (10:32)
[2017-02-19] MEDS: NICOTINE 21 MG/24 HOURS TOPICAL PATCH TD SCH (10:32)
[2017-02-19] MEDS: PRENATAL VITAMINS W/ FOLIC ACID TABLET (FP) PO SCH (10:32)
[2017-02-19] MEDS: ALBUTEROL SO4 18 GM HFA INHALER IH PRN (20:23)
[2017-02-19] MEDS: THIAMINE HCL 100 MG TABLET (FP) PO SCH (21:51)
[2017-02-19] MEDS: QUEtiapine FUMARATE 200 MG TABLET PO SCH (21:51)
[2017-02-20] MEDS: GABAPENTIN 300 MG CAPSULE (FP) PO SCH ×3 (06:11→22:03)
[2017-02-20] MEDS: metFORMIN HCL 500 MG TABLET (FP) PO SCH ×2 (06:11→16:51)
[2017-02-20] MEDS: NICOTINE 21 MG/24 HOURS TOPICAL PATCH TD SCH (10:38)
[2017-02-20] MEDS: PRENATAL VITAMINS W/ FOLIC ACID TABLET (FP) PO SCH (10:38)
[2017-02-20] MEDS: BACITRACIN 0.9 GM PACKET TP SCH ×2 (10:38→22:03)
[2017-02-20] MEDS: LOSARTAN POTASSIUM 25 MG TABLET PO SCH (10:46)
[2017-02-20] MEDS ORDERED: FLU VACCINE QUAD 60 MCG/0.5 ML (MDV 17-18) IM ONE (15:15)
[2017-02-20] MEDS: THIAMINE HCL 100 MG TABLET (FP) PO SCH (22:03)
[2017-02-20] MEDS: QUEtiapine FUMARATE 200 MG TABLET PO SCH (22:04)
[2017-02-21] MEDS: GABAPENTIN 300 MG CAPSULE (FP) PO SCH ×3 (06:18→21:47)
[2017-02-21] MEDS: metFORMIN HCL 500 MG TABLET (FP) PO SCH ×2 (07:07→16:39)
[2017-02-21] MEDS: PRENATAL VITAMINS W/ FOLIC ACID TABLET (FP) PO SCH (10:44)
[2017-02-21] MEDS: LOSARTAN POTASSIUM 25 MG TABLET PO SCH (10:44)
[2017-02-21] MEDS: NICOTINE 21 MG/24 HOURS TOPICAL PATCH TD SCH (10:45)
[2017-02-21] MEDS: BACITRACIN 0.9 GM PACKET TP SCH ×2 (10:45→21:47)
[2017-02-21] MEDS ORDERED: FLU VACCINE QUAD 60 MCG/0.5 ML (MDV 17-18) IM ONE (12:00)
[2017-02-21] MEDS: QUEtiapine FUMARATE 200 MG TABLET PO SCH (21:47)
[2017-02-21] MEDS: THIAMINE HCL 100 MG TABLET (FP) PO SCH (21:48)
[2017-02-22] MEDS: metFORMIN HCL 500 MG TABLET (FP) PO SCH ×2 (06:17→16:47)
[2017-02-22] MEDS: GABAPENTIN 300 MG CAPSULE (FP) PO SCH ×3 (06:17→21:56)
[2017-02-22] MEDS: PRENATAL VITAMINS W/ FOLIC ACID TABLET (FP) PO SCH (10:42)
[2017-02-22] MEDS: BACITRACIN 0.9 GM PACKET TP SCH ×2 (10:42→21:56)
[2017-02-22] MEDS: LOSARTAN POTASSIUM 25 MG TABLET PO SCH (10:42)
[2017-02-22] MEDS: NICOTINE 21 MG/24 HOURS TOPICAL PATCH TD SCH (10:43)
--- NOTE | 2017-02-22 14:51 | PN ---
Psychiatric Progress Note Vital Signs: Vital Signs Period Temp Pulse Resp BP Sys/Boyer Pulse Ox Last 24 Hr 97.4 F 75 16-18 117/86 Date of Session: 02/22/17 Chief Complaint:: Discharge visit HPI: Patient addressed Alcohol and Opioid dependence comorbid with Substance induced mood disorder,OCD. ROS: DM,Polyneuropathy,COPD. Current Medications: Active Medications Generic Name Dose Route Start Last Admin Trade Name Freq PRN Reason Stop Dose Admin Acetaminophen 650 mg 02/11/17 09:51 Tylenol - PO Q4H PRN FEVER OR PAIN Al Hydroxide/Mg Hydroxide 30 ml 02/11/17 09:51 Mylanta Oral Suspension - PO Q6H PRN DYSPEPSIA Albuterol Sulfate 2 puff 02/18/17 22:42 02/19/17 20:23 Ventolin Hfa Inhaler - IH 2 puff Q4H PRN Administration WHEEZING Bacitracin 0.9 gm 02/14/17 22:00 02/22/17 10:42 Bacitracin - TP Not Given BID JANET Diphenhydramine HCl 50 mg 02/11/17 22:00 02/11/17 22:49 Benadryl - PO 50 mg HSMR1 PRN Administration INSOMNIA Eucalyptus/Menthol/Phenol/Sorbitol 1 each 02/11/17 09:51 Cepastat Lozenge - MM Q4H PRN SORE THROAT Fluvoxamine Maleate 300 mg 02/12/17 14:00 02/22/17 10:42 Luvox - PO 300 mg DAILY JANET Administration Gabapentin 300 mg 02/16/17 14:00 02/22/17 14:30 Neurontin - PO 300 mg TID JANET Administration Guaifenesin 10 ml 02/11/17 09:51 Robitussin Dm - PO Q6H PRN COUGH Hydroxyzine Pamoate 50 mg 02/11/17 09:51 Vistaril - PO Q4H PRN AGITATION Ibuprofen 400 mg 02/11/17 09:51 02/17/17 20:59 Motrin - PO 400 mg Q6H PRN Administration SEVERE PAIN Loperamide HCl 4 mg 02/11/17 09:51 Imodium - PO Q6H PRN DIARRHEA Losartan Potassium 25 mg 02/11/17 13:00 02/22/17 10:42 Cozaar - PO 25 mg DAILY JANET Administration Magnesium Citrate 300 ml 02/11/17 09:51 Citroma - PO Q48H PRN CONSTIPATION Magnesium Hydroxide 30 ml 02/11/17 09:51 02/12/17 17:35 Milk Of Magnesia - PO 30 ml DAILY PRN Administration CONSTIPATION Metformin HCl 500 mg 02/11/17 16:30 02/22/17 06:17 Glucophage - PO 500 mg BIDI JANET Administration Nicotine 21 mg 02/11/17 10:00 02/22/17 10:43 Nicoderm Patch - TD 21 mg DAILY JANET Administration Multivit/Folic Acid/Iron 1 tab 02/11/17 10:00 02/22/17 10:42 Vitamins (Sjr) - PO 1 tab DAILY JANET Administration Pseudoephedrine/Triprolidine 1 combo 02/11/17 09:51 Actifed - PO TID PRN NASAL CONGESTION Quetiapine Fumarate 400 mg 02/12/17 22:00 02/21/17 21:47 Seroquel - PO 400 mg HS JANET Administration Thiamine HCl 100 mg 02/11/17 22:00 02/21/17 21:48 Vitamin B1 - PO 100 mg HS JANET Administration Current Side Effect: No Lab tests ordered: No Lab tests reviewed: Yes Provider note:: Patient will complete this program tomorrow 02/23/17.He has met his treatment goals and will continue to address his issues on outpatient basis at [facility].Patient teport finding that current medications:Seroquel 400 mg po hs,Luvox 300 mg po am and Neurontin 400 mg po tid help to cope with anxiety,OCD,Mood swings,sleeping difficulties.Scripts for 30 days provided. Patient identifies areas of difficulties,behaviors which contribute to relapse.Supportive therapy provided focusing on support,coping skills utlization to maintain recovery. Patient is stable for discharge tomorrow 02/23/17. Total face to face time:: 30 Mental Status Exam - Mental Status Exam Alert and Oriented to: Time, Place, Person Cognitive Function: Grossly Intact Patient Appearance: Unkempt Mood: Hopeful Affect: Mood Congruent Patient Behavior: Cooperative Speech Pattern: Clear Voice Loudness: Normal Thought Process: Goal Oriented Thought Disorder: Not Present Hallucinations: Denies Suicidal Ideation: Denies Homicidal Ideation: Denies Insight/Judgement: Fair Sleep: Fair Appetite: Good Muscle strength/Tone: Normal Gait/Station: Normal Psychiatric Treatment Plan - Problem List (1) Alcohol dependence Current Visit: Yes (2) SHASHANK (generalized anxiety disorder) Current Visit: Yes (3) Opioid dependence on agonist therapy Current Visit: Yes (4) Substance-induced anxiety disorder Current Visit: Yes
[2017-02-22 15:57] VITALS: BP 121/74
[2017-02-22] MEDS: THIAMINE HCL 100 MG TABLET (FP) PO SCH (21:56)
[2017-02-22] MEDS: QUEtiapine FUMARATE 200 MG TABLET PO SCH (21:56)
[2017-02-23] MEDS: metFORMIN HCL 500 MG TABLET (FP) PO SCH (06:16)
[2017-02-23] MEDS: GABAPENTIN 300 MG CAPSULE (FP) PO SCH (06:16)
[2017-02-23 06:48] VITALS: PULSE 78; TEMP 97.9
[2017-02-23] MEDS: PRENATAL VITAMINS W/ FOLIC ACID TABLET (FP) PO SCH (09:54)
[2017-02-23] MEDS: LOSARTAN POTASSIUM 25 MG TABLET PO SCH (09:54)
[2017-02-23] MEDS: BACITRACIN 0.9 GM PACKET TP SCH (09:57)
[2017-02-23] MEDS: ALBUTEROL SO4 18 GM HFA INHALER IH PRN (09:57)
[2017-02-23] MEDS: NICOTINE 21 MG/24 HOURS TOPICAL PATCH TD SCH (09:57)
== END 2017-02-23 10:45 | disposition home or self-care (01) | DRG 895 ==
LOC: YASAS 09:07 → Y6N 12:41 → Y5N 02-15 12:17
PROVIDERS: ADMIT Internal Medicine; ATTEND Psychiatry & Neurology Psychiatry
PROC: HZ42ZZZ Group Counseling for Substance Abuse Treatment, Cognitive-Behavioral (ICD-10-PCS; principal; 2017-02-11)
DX: F11.20 Opioid dependence, uncomplicated (principal); F13.230 Sedative, hypnotic or anxiolytic dependence with withdrawal, uncomplicated; F10.230 Alcohol dependence with withdrawal, uncomplicated; F19.282 Other psychoactive substance dependence with psychoactive substance-induced sleep disorder; F17.210 Nicotine dependence, cigarettes, uncomplicated; F19.24 Other psychoactive substance dependence with psychoactive substance-induced mood disorder; F32.9 Major depressive disorder, single episode, unspecified; F41.1 Generalized anxiety disorder; F42.8 Other obsessive-compulsive disorder; I10 Essential (primary) hypertension; E11.9 Type 2 diabetes mellitus without complications; Z79.84 Long term (current) use of oral hypoglycemic drugs; J43.8 Other emphysema; Z86.69 Personal history of other diseases of the nervous system and sense organs; B18.2 Chronic viral hepatitis C; S01.111A Laceration without foreign body of right eyelid and periocular area, initial encounter; S01.81XA Laceration without foreign body of other part of head, initial encounter; X58.XXXA Exposure to other specified factors, initial encounter; Y93.89 Activity, other specified; Y92.89 Other specified places as the place of occurrence of the external cause
CPT/HCPCS: 36415; 80053; 81003; 81015; 85027; 86593; 90688; 93005; 93010